=== PATIENT | male | born 2000 | race Hispanic/Latino ===

== ENCOUNTER 2023-03-15 08:35 | Emergency (ER) | payer SELFPAY ==
[2023-03-15] VITALS (11 sets, daily range): BP systolic 112–132; BP diastolic 62–79
[~2023-03-15] VITALS: Ht 172.7 cm; Wt 66.6 kg
[2023-03-15] MEDS ORDERED: BACTRIM DS1 TAB PO (09:55)
== END 2023-03-15 12:15 | disposition home or self-care (01) | DRG 603 ==
LOC: ED 08:35
DX: L03.116 Cellulitis of left lower limb (principal)